=== PATIENT | male | born 1960 | race Caucasian/White ===

== ENCOUNTER 2016-06-30 10:31 | Outpatient (CLI) | payer OTHER ==
--- NOTE | 2016-06-30 12:10 | DIAGNOSTIC IMAGING REPORT ---
PROCEDURE: XR BARIUM SWALLOW INDICATION: Heartburn refractory to medications. TECHNIQUE: Double contrast study. Fluoroscopy time, 2.7 minutes; 1929.34 mGy. 59 fluoroscopic images (including cine fluoroscopy of the esophagus). COMPARISON: None. FINDINGS: Pharyngoesophagus is normal. Small sliding hiatal hernia with moderate to marked gastroesophageal reflux. Mild tertiary contractions of the esophagus. No constricting or polypoid lesions. IMPRESSION: 1. Small sliding hiatal hernia. 2. Moderate to marked gastroesophageal reflux. 3. Mild tertiary contractions suggests mild esophageal spasm. 4. Findings discussed with the patient.
[2016-07-15] MEDS ORDERED: LISINOPRIL10 MG PO ×2 (17:20)
[2016-07-15] MEDS ORDERED: MULTIVITAMIN1 TAB PO (17:20)
[2016-07-15] MEDS ORDERED: OMEPRAZOLE20 M1 PO (17:21)
[2016-07-15] MEDS ORDERED: SIMVASTATIN20 MG PO (17:21)
[2016-07-15] MEDS ORDERED: METFORMIN HCL500 MG PO (17:21)
[2016-07-15] MEDS ORDERED: KRILL OIL300 MG PO (17:22)
[2016-07-15] MEDS ORDERED: COQ-10100 MG PO (17:23)
[2016-07-15] MEDS ORDERED: CINNAMON500 MG PO (17:23)
[2016-07-15] MEDS ORDERED: ASPIRIN81 M1 PO (17:23)
[2016-07-15] MEDS ORDERED: MILK THISTLE150 MG PO (17:23)
== END 2016-06-30 23:00 ==
LOC: XR SRH 10:31
DX: K21.9 Gastro-esophageal reflux disease without esophagitis (principal); K44.9 Diaphragmatic hernia without obstruction or gangrene